=== PATIENT | female | born 1965 | race Caucasian/White ===

== ENCOUNTER 2019-07-26 08:29 | Emergency (ER) | payer BC, SELFPAY ==
[2019-07-26 08:30] VITALS: BP 188/95; PULSE 75; RESP 18; TEMP 36.8; O2SAT 98; BMI 34.0
--- NOTE | 2019-07-26 08:42 | CT_ITS ---
STUDY: CT BRAIN WITHOUT CONTRAST REASON FOR EXAM: Female, 53 years old. Left facial and left arm paresthesias and weakness. RADIATION DOSAGE (If Supplied By Facility): CTDIvol = ( 44.99 ) mGy, DLP = ( 779.24 ) mGycm TECHNIQUE: Transaxial CT imaging of the brain was performed without administration of intravenous contrast material. Individualized dose optimization techniques were used for this CT. COMPARISON: No relevant priors. FINDINGS: Normal soft tissue structures. Normal calvarium. There is a 4.9 cm x 4.5 cm x 3.8 cm inhomogeneous mass in the right frontal parietal lobe with surrounding edema and mass effect. 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 A repeat CT scan with IV contrast or MRI is recommended for further evaluation. Normal brainstem. Normal cerebellum. There is no intracranial hemorrhage. There are no findings of an acute ischemic infarction. Normal visualized paranasal sinuses. CT/Brain/Head without Contrast IMPRESSION: 4.9 cm x 4.5 cm x 3.8 cm inhomogeneous mass in the right frontoparietal lobes as described. A neoplastic process should be ruled out. There is evidence of surrounding edema and mass effect. Correlation with enhanced CT scan or MRI is recommended for further evaluation. Electronically Signed: Sher Gomez, at 9:42 EDT , Service support ,
--- NOTE | 2019-07-26 08:42 | EKG12_ITS ---
Test Reason : NUMB N TINGLING Blood Pressure : / mmHG Vent. Rate : 073 BPM Atrial Rate : 073 BPM P-R Int : 188 ms QRS Dur : 082 ms QT Int : 388 ms P-R-T Axes : 027 047 030 degrees QTc Int : 427 ms Normal sinus rhythm Cannot rule out Anterior infarct , age undetermined Abnormal ECG Confirmed by RASHAD SHORT, CHACORTA ([id number]), newspaper photo editor SHARON GASTON ([id number]) on 07/27/2019 9:23:05 AM Referred By: Confirmed By:CHACORTA SOLORZANO MD
--- NOTE | 2019-07-26 08:50 | ED.DCSUM_ITS ---
- ER Visit Summary Date of Service: 07/26/19 Chief Complaint: Left face arm concerns History of Present Illness: The patient is a 53 F who tells me for the past week she has felt her conjunctiva being swollen in the left eye. Yesterday she noticed that she seemed to be talking on the right side of her mouth and noticed a left facial droop. She states the left side of her face feels different when compared to the right. She states that when she closes her eyes the left eyelid feels weaker. Today she states she was on the keyboard on her computer trying to make a doctor's appointment and her left hand did not seem to be hitting the keystrokes correctly. She describes it as fumbling. She states that has improved and her left arm now feels heavy. She denies current headache. She has not noticed any rashes. No leg symptoms. No chest pain or shortness of breath. Physical Examination: Noted hypertension 188/95 heart rate is 75 respirations are 18 pulse ox 98% on room air temperature 98.3 Gen: Well-nourished well-developed Head: Normocephalic atraumatic Eyes: Perrl EOMI ENT: TMs clear no rhinorrhea moist mucous membranes Neck: Supple no lymphadenopathy no JVD nontender CVS: Regular rate rhythm no murmurs normal S1-S2 Respiratory: No distress clear to auscultation bilaterally chest nontender Abdomen: Soft nontender nondistended normal bowel sounds no masses Back: Nontender Extremity: Nontender no edema Skin: Normal color no rash Neuro: alert orientated ?3 CN II-XII intact normal strength gait cerebellar patient reports decreased sensation to the left face left hand. When patient smiles corners of the mouth rise. She is able to wrinkle her forehead though there seems to be less creases on the left compared to the right. Patient appears to have good dexterity of the left hand being able to rapidly tap each finger to her thumb. Psych: Normal affect normal mood Test Results: EKG showed a normal sinus rhythm at a rate of 73. CBC and CMP are normal. Chest x-ray negative. CT noncontrast of the brain demonstrates a 4.9 x 4.5 x 3.8 right frontal parietal mass with edema and mass-effect. Emergency Department Course and Treatment: Patient received IV Decadron. Patient and his significant other were updated on the above findings. We are currently working to transfer her to facility that can continue the work-up. She has requested [facility]. Impression: 1. 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 It may contain incorrect words, spelling, and punctuation that were not noted in review of the chart prior to signing ED Disposition - Plan for ED Patient: Referrals: [facility] Doctor,Out of [Primary Care Provider] -
--- NOTE | 2019-07-26 09:02 | RAD_ITS ---
STUDY: X-RAY CHEST REASON FOR EXAM: Female, 53 years old. Facial numbness. TECHNIQUE: PA and lateral views of the chest. COMPARISON: None. FINDINGS: EKG electrodes are seen. The lungs are clear and expanded. There is no demonstrated pleural abnormality. Normal size heart. Normal mediastinum and rere. Normal visualized pulmonary arteries. Normal visualized aortic arch and descending thoracic aorta. There are mild degenerative changes of the visualized thoracic spine. Normal visualized ribs, clavicles, and shoulders. There is no demonstrated abnormality of the visualized soft tissue structures of the upper abdomen. RAD/Chest PA and Lateral IMPRESSION: Normal x-ray examination of the chest. Electronically Signed: Sher Gomez, at 9:40 EDT , Service support ,
[2019-07-26 09:08] LABS: Absolute Lymphocyte Count 1.04 X10^3/uL (0.83-4.51); Absolute Neutrophil Count 3.6 X10^3/uL (2.0-7.7); Basophil# 0.03 X10^3/uL; Basophil% 0.6 % (0-1); Eosinophil# 0.09 X10^3/uL; Eosinophils% 1.8 % (0-5); Hematocrit 40.4 % (37-47); Hemoglobin 13.9 g/dL (12.0-15.0); Lymphocyte # 1.04 X10^3/ul (4.0); Lymphocyte % 20.4 % (19-41); Mean Corp Hgb Conc 34.4 g/dL (32-36); Mean Corpuscular Hgb 30.4 pg (27.0-32.0); Mean Corpuscular Volume 88.4 fL (81-99); Mean Platelet Vol. 11.5 fl (6.2-12.0); Monocyte% 5.9 % (0-10); NRBC Flagged by Analyzer 0 % (0-5); Neutrophil # 3.63 X10^3/uL (2.7-7.7); Neutrophil % 71.1 % (47-70); Platelet Count 191 K/mm3 (150-450); RBC Distribution Width SD 38.8 fl (35.1-43.9); Red Blood Count 4.57 M/mm3 (4.2-5.4); White Blood Count 5.1 K/mm3 (4.4-11.0)
[2019-07-26 09:24] LABS: ALB/GLOB Ratio 0.9 RATIO (0.9-2.4); AST(SGOT) 16 U/L (15-37); Alanine Aminotransfer ALT/SGPT 33 U/L (13-56); Albumin, Serum 3.3 g/dL (3.2-5.0); Alkaline Phosphatase 79 U/L (45-117); Anion Gap 8 (5-15); BUN 15 mg/dL (7-18); BUN/Creat Ratio 19.9 RATIO (10-20); Calcium,Total 8.7 mg/dL (8.5-10.1); Chloride 113 mmol/L (98-107); Creatinine, Serum 0.76 mg/dL (0.55-1.02); EST Glomerular Filtration Rate 85 mL/min (>60); Est Glom Filt Rate - Afr Amer 103 mL/min (>60); Estimated Creatinine Clearance 89.46 ml/min; Globulin 3.5 g/dL (2.2-4.2); Glucose 82 mg/dL (74-106); Potassium 3.9 mmol/L (3.5-5.1); Protein, Total 6.8 g/dL (6.4-8.2); Sodium Level 146 mmol/L (136-145)
[2019-07-26] MEDS: dexAMETHasone 10 MG/ML Vial IV (10:17)
--- NOTE | 2019-07-26 10:38 | CASEMGMT ---
Case Management Progress Note: According to patient Insurance [facility] PPO, In Network Hospitals: FATOU Brady, [facility], [place], [facility], [facility], [facility]. Mily Leal RNCM
[2019-07-26 10:44] VITALS: BP 198/107; PULSE 75; RESP 18; O2SAT 99
[2019-07-26 12:37] VITALS: BP 198/107; PULSE 100; RESP 18; O2SAT 100
--- NOTE | 2019-07-26 12:38 | ED.RN ---
TALKED TO [facility] AND THEY STILL DONT HAVE A BED FOR THE PATIENT ALTHOUGH SHE IS HIGHER ON THE PRIORITY LIST.
[2019-07-26 14:00] VITALS: BP 178/98; PULSE 98; RESP 19; O2SAT 98
[2019-07-26] MEDS: hydrALAZINE 20 MG/ML Vial 10 MG IV (14:25)
[2019-07-26 15:04] VITALS: BP 178/98; PULSE 91; RESP 16; O2SAT 98
== END 2019-07-26 15:06 | disposition short-term general hospital (02) ==
PROVIDERS: Emergency Provider Emergency Medicine
DX: D49.6 Neoplasm of unspecified behavior of brain (principal); I10 Essential (primary) hypertension; Z79.899 Other long term (current) drug therapy
CPT/HCPCS: 70450; 71046; 80053; 85025; 93005; 96374; 96375; 99285; A4216

== ENCOUNTER 2019-08-19 02:33 | Emergency (ER) | payer BC, SELFPAY ==
[2019-08-19 02:34] VITALS: BP 187/100; PULSE 90; RESP 16; TEMP 36.4; O2SAT 98; BMI 33.0
--- NOTE | 2019-08-19 02:45 | CT_ITS ---
STUDY: CT BRAIN WITHOUT CONTRAST REASON FOR EXAM: Female, 53 years old. Seizure activity. Known brain mass. RADIATION DOSAGE (If Supplied By Facility): CTDIvol = ( 44.99 ) mGy, DLP = ( 796.11 ) mGycm TECHNIQUE: Transaxial CT imaging of the brain was performed without administration of intravenous contrast material. Individualized dose optimization techniques were used for this CT. COMPARISON: No relevant priors. FINDINGS: There is postoperative change from right frontal craniotomy with frontal lobe tumor resection. Heterogeneous hypoattenuation within the resection bed with mild surrounding vasogenic edema, improved compared to prior imaging. There is a 4 mm midline shift to the left. Normal size ventricles and extra-axial spaces for the patient's age. There is mild underlying bilateral periventricular and subcortical white matter hypoattenuation which is symmetric in distribution. Normal basal ganglia and thalami. Normal brainstem. Normal cerebellum. There is no intracranial hemorrhage. There are no findings of an acute ischemic infarction. Normal visualized paranasal sinuses. CT/Brain/Head without Contrast IMPRESSION: 1. Postoperative change from right frontal craniotomy and right frontal lobe mass resection with mild residual heterogeneous edema throughout the resection bed and 4 mm midline shift to the left. 2. Mild underlying bilateral periventricular and subcortical white matter chronic small vessel disease with age appropriate cerebral atrophy. Electronically Signed: Oli Robert MD at 3:59 EDT Tel , Service support ,
--- NOTE | 2019-08-19 02:47 | ED.DCSUM_ITS ---
History of Present Illness Chief Complaint: Seizure Informant: Patient, Family Onset: Today Context: Sudden Onset Narrative: Patient is a 53-year-old female with recent diagnosis of stage IV glioblastoma multiform who had her first session of radiation therapy this morning. Patient is presenting with seizure activity. Prior to arrival patient had a 3 to 4- minute episode where she had uncontrolled shaking of her left arm. It stopped spontaneously. Patient was able to recall the entire event and did not have an associated postictal state. Nothing like this has happened her before. Patient was scheduled to start chemotherapy in the morning. Patient receives her care through [facility]. Her radiation oncologist is Dr. Rachel. Patient was recently tapered off of Decadron however she started to have increasing left-sided weakness. This was initially what led to her diagnosis of GBM. Patient received an 8 mg burst of Decadron 2 days ago. Patient is also been tapered off of Keppra over the past week. Besides feeling more weak on her left side patient denies any other complaints at this time. Past Medical History - Allergies and Home Meds Allergies/Adverse Reactions: Allergies No Known Allergies Allergy (Verified 08/19/19 02:33) Primary Care Physician: Jovan Black,Out of [NON-STAFF] - Past Medical History: - - GBM stage IV Surgical History: - - brain tumor surgery Lives: Spouse/ Significant Other Smoking Status: Former smoker Review of Systems All systems negative except as indicated Neurological: Reports: Weakness - left sided , - - seizure activity Physical Exam Vital Signs/Narrative: Vital Signs Temp Pulse Resp BP Pulse Ox 08/19/19 02:34 97.6 F L 90 16 187/100 H 98 General: Well nourished, Well developed, No Acute Distress Head: Normocephalic, Atraumatic Eyes: Perrl, EOMI, - - No nystagmus ENT: Moist mucous membranes, No rhinorrhea Neck: Supple, Nontender Cardiovascular: Regular rate, Regular rhythm, No murmurs Respiratory: No distress, CTA bilaterally, Chest nontender Abdomen: Soft, Nontender, Nondistended, Normal bowel sounds Back: Nontender, Normal Inspection Extremities: Nontender, No edema Skin: Normal color, No rash Neurological: Alert, Oriented x3, Parasthesia - Left upper extremity, Weakness - Left arm drift, Left side facial droop Psychological: Normal affect, Normal Mood Diagnostic/Tx/Re-eval Diagnostic Data Brain CT 08/19/19 02:45 IMPRESSION: 1. Postoperative change from right frontal craniotomy and right frontal lobe mass resection with mild residual heterogeneous edema throughout the resection bed and 4 mm midline shift to the left. 2. Mild underlying bilateral periventricular and subcortical white matter chronic small vessel disease with age appropriate cerebral atrophy. Electronically Signed: Oli Robert MD at 3:59 EDT Tel , Service support , Clinical Impression(s) from Imaging Studies Brain CT 08/19/19 02:45 IMPRESSION: 1. Postoperative change from right frontal craniotomy and right frontal lobe mass resection with mild residual heterogeneous edema throughout the resection bed and 4 mm midline shift to the left. 2. Mild underlying bilateral periventricular and subcortical white matter chronic small vessel disease with age appropriate cerebral atrophy. Electronically Signed: Oli Robert MD at 3:59 EDT Tel , Service support , Laboratory Data 08/19/19 08/19/19 08/19/19 02:45 02:45 02:55 WBC 8.5 RBC 5.11 Hgb 15.7 H Hct 45.6 MCV 89.2 MCH 30.7 MCHC 34.4 RDW Std Deviation 40.5 RDW Coeff of Jerrod 12.4 Plt Count 204 MPV 11.1 Immature Gran % (Auto) 0.200 Neut % (Auto) 93.0 H Lymph % (Auto) 5.3 L Wilkin % (Auto) 1.4 Eos % (Auto) 0.0 Baso % (Auto) 0.1 Absolute Neuts (auto) 7.9 H Absolute Lymphs (auto) 0.45 L Nucleated RBC % 0 Differential Comment SCANNED Sodium 143 Potassium 4.2 Chloride 111 H Carbon Dioxide 20.0 L Anion Gap 12 BUN 18 Creatinine 0.87 Estim Creat Clear Calc 78.15 Est GFR (MDRD) Af Amer 87 Est GFR (MDRD) Non-Af 72 BUN/Creatinine Ratio 20.6 H Glucose 127 H Calcium 9.0 Urine Color Yellow Urine Clarity Sl. Cloudy Urine pH 6.0 Ur Specific [place] 1.020 Urine Protein 15 H Urine Glucose (UA) Normal Urine Ketones 50 H Urine Occult Blood 10 H Urine Nitrite Negative Urine Bilirubin Negative Urine Urobilinogen Normal Ur Leukocyte Esterase 25 H Urine RBC 0 SEEN Urine WBC 0-5 SEEN Ur Squamous Epith Cells 0-5 SEEN Urine Bacteria RARE Urine Mucus 0 SEEN Urine Opiates Screen Urine Methadone Screen Ur Barbiturates Screen Ur Phencyclidine Scrn Ur Amphetamines Screen U Methamphetamin-MDMA U Benzodiazepines Scrn Urine Cocaine Screen U Cannabinoids Screen Ur Drug Screen Comment 08/19/19 02:55 WBC RBC Hgb Hct MCV MCH MCHC RDW Std Deviation RDW Coeff of Jerrod Plt Count MPV Immature Gran % (Auto) Neut % (Auto) Lymph % (Auto) Wilkin % (Auto) Eos % (Auto) Baso % (Auto) Absolute Neuts (auto) Absolute Lymphs (auto) Nucleated RBC % Differential Comment Sodium Potassium Chloride Carbon Dioxide Anion Gap BUN Creatinine Estim Creat Clear Calc Est GFR (MDRD) Af Amer Est GFR (MDRD) Non-Af BUN/Creatinine Ratio Glucose Calcium Urine Color Urine Clarity Urine pH Ur Specific [place] Urine Protein Urine Glucose (UA) Urine Ketones Urine Occult Blood Urine Nitrite Urine Bilirubin Urine Urobilinogen Ur Leukocyte Esterase Urine RBC Urine WBC Ur Squamous Epith Cells Urine Bacteria Urine Mucus Urine Opiates Screen NEGATIVE Urine Methadone Screen NEGATIVE Ur Barbiturates Screen NEGATIVE Ur Phencyclidine Scrn NEGATIVE Ur Amphetamines Screen NEGATIVE U Methamphetamin-MDMA NEGATIVE U Benzodiazepines Scrn NEGATIVE Urine Cocaine Screen NEGATIVE U Cannabinoids Screen NEGATIVE Ur Drug Screen Comment - Medical Decision Making Patient is evaluated for seizure-like activity. From the history of the seizure appears to be a partial seizure. Patient has a known glioblastoma which is likely cause of her seizure. Repeat head CT does not show any acute intracranial process. Patient does not have any signs of stroke or intracranial bleed. While patient does have some neuro deficits, patient and state that this is been present and associated with her tumor. Patient does not have any significant electrolyte abnormalities that might explain her seizure activity. Did discuss the case with radiation oncology on-call, Dr. Hart at [facility]. He felt that starting her Keppra would be appropriate but recommended discussing with neurology first. From his standpoint he did not think the patient needed to be admitted. I spoke with Dr. Zimmer, neurology on-call for [facility], about the case. He agreed with restarting the patient's Keppra but did not think she needed to be loaded with IV Keppra. He felt that if she was clinically stable in the emergency room that she could follow-up outpatient with her team tomorrow at [facility]. I agree with this. I feel the patient is stable for outpatient follow-up. She does not have any acute neurologic changes and she has a known cause of her seizure, the tumor. Patient was previously on 1000 mg of Keppra twice daily. She will be restarted on this. She is given first dose in the emergency room. She is given a prescription for a 2-week course of this. Patient is counseled on signs and symptoms requiring return to the emergency room. Patient verbalizes agreement and understand this plan. Patient discharged home in stable and improved condition. ED Disposition - Plan for ED Patient: Disposition: Home or Assisted Living Diagnosis: Partial seizures Instructions: Partial Seizures: Know What to Do Prescriptions: levETIRAcetam tablet [Keppra tablet] 1,000 mg PO BID #28 tab Prescription Printed Referrals: [facility] Doctor,Out of [NON-STAFF] - Additional Instructions: Please call your medical oncologist tomorrow for further instructions for follow-up. Let them know that you had a likely partial seizure tonight. You were restarted on Keppra 1000 mg. Return to the emergency room if you develop any new or worsening symptoms.
[2019-08-19 02:54] LABS: Absolute Lymphocyte Count 0.45 X10^3/uL (0.83-4.51); Absolute Neutrophil Count 7.9 X10^3/uL (2.0-7.7); Basophil# 0.01 X10^3/uL; Basophil% 0.1 % (0-1); Hematocrit 45.6 % (37-47); Hemoglobin 15.7 g/dL (12.0-15.0); Lymphocyte # 0.45 X10^3/ul (4.0); Lymphocyte % 5.3 % (19-41); Mean Corp Hgb Conc 34.4 g/dL (32-36); Mean Corpuscular Hgb 30.7 pg (27.0-32.0); Mean Corpuscular Volume 89.2 fL (81-99); Mean Platelet Vol. 11.1 fl (6.2-12.0); Monocyte# 0.12 X10^3/uL; Monocyte% 1.4 % (0-10); NRBC Flagged by Analyzer 0 % (0-5); Neutrophil # 7.88 X10^3/uL (2.7-7.7); POSITIVE DIFFERENTIAL YES; Platelet Count 204 K/mm3 (150-450); RBC Distribution Width CV 12.4 % (11.6-14.6); RBC Distribution Width SD 40.5 fl (35.1-43.9); Red Blood Count 5.11 M/mm3 (4.2-5.4); White Blood Count 8.5 K/mm3 (4.4-11.0)
[2019-08-19 02:59] LABS: Mucous, Urine 0 SEEN /hpf (<or=2+); Red Blood Cells-Urine 0 SEEN /hpf (0-5)
[2019-08-19] MEDS: 0.9% Normal Saline 1,000 ML 1000 ML IV (03:02)
[2019-08-19 03:06] LABS: Color, Urine Yellow (Yellow); Glucose, Dipstick Normal (Normal); Ketone-Dipstick 50 mg/dl (Negative); Leukocyte Esterase-Dipstick 25 /ul (Negative); Nitrite-Dipstick Negative (Negative); Occult Blood-Urine 10 /ul (Negative); Protein-Dipstick 15 mg/dl (Negative); Urine Bilirubin Dipstick Negative (Negative); Urine Clarity Sl. Cloudy (Clear); Urine Urobilinogen Normal (Normal)
[2019-08-19 03:10] LABS: Differential Indicated SCAN CRITERIA MET
[2019-08-19 03:11] LABS: Anion Gap 12 (5-15); BUN 18 mg/dL (7-18); BUN/Creat Ratio 20.6 RATIO (10-20); Chloride 111 mmol/L (98-107); Creatinine, Serum 0.87 mg/dL (0.55-1.02); EST Glomerular Filtration Rate 72 mL/min (>60); Est Glom Filt Rate - Afr Amer 87 mL/min (>60); Estimated Creatinine Clearance 78.15 ml/min; Glucose 127 mg/dL (74-106); Potassium 4.2 mmol/L (3.5-5.1); Sodium Level 143 mmol/L (136-145)
[2019-08-19 03:18] LABS: Differential Comment SCANNED
[2019-08-19 03:28] LABS: Bacteria RARE /hpf (None Seen); Squamous Epithelial Cells - UA 0-5 SEEN /hpf (5-10); White Blood Cells 0-5 SEEN /hpf (0-5)
[2019-08-19 03:35] LABS: Amphetamine Urine VISTA NEGATIVE (<1000 ng/mL); Barbiturate Urine VISTA NEGATIVE (< 200 ng/mL); Benzodiazepine Urine VISTA NEGATIVE (< 200 ng/mL); Cocaine Urine VISTA NEGATIVE (< 300 ng/mL); Ecstacy Urine VISTA NEGATIVE (< 500 ng/mL); Methadone Urine VISTA NEGATIVE (< 300 ng/mL); PCP Urine VISTA NEGATIVE (< 25 ng/mL); THC Urine VISTA NEGATIVE (< 50 ng/mL); Vista UDS pH Range 6
[2019-08-19] MEDS: levETIRAcetam 1,000 MG Tablet 1000 MG PO (04:22)
[2019-08-19 04:36] VITALS: BP 170/92; PULSE 70; PULSE 73; RESP 13; RESP 18; O2SAT 98
== END 2019-08-19 04:45 | disposition home or self-care (01) ==
PROVIDERS: Emergency Provider Emergency Medicine
DX: R56.9 Unspecified convulsions (principal); C71.9 Malignant neoplasm of brain, unspecified; Z79.899 Other long term (current) drug therapy; Z87.891 Personal history of nicotine dependence
CPT/HCPCS: 70450; 80048; 80307; 81001; 85025; 96360; 96361; 99285; J7030

== ENCOUNTER 2019-10-22 17:32 | Emergency (ER) | payer BC, SELFPAY ==
[2019-10-22 17:33] VITALS: BP 152/78; PULSE 68; RESP 17; TEMP 36.9; O2SAT 99; BMI 33.7
[2019-10-22 17:40] VITALS: BMI 33.7
--- NOTE | 2019-10-22 18:03 | CT_ITS ---
STUDY: CT BRAIN WITHOUT CONTRAST REASON FOR EXAM: Female, 53 years old. Left-sided weakness. History of glioblastoma multiform status post radiation and surgery. RADIATION DOSAGE (If Supplied By Facility): CTDIvol = ( 60.81 ) mGy, DLP = ( 1067.08 ) mGycm TECHNIQUE: Transaxial CT imaging of the brain was performed without administration of intravenous contrast material. Individualized dose optimization techniques were used for this CT. COMPARISON: Prior exam of August 19, 2019 FINDINGS: Normal soft tissue structures. Status post right superior frontal craniotomy. Continued heterogeneous density throughout the operative bed in the right frontal lobe appearing modestly reduced in size since August 19, 2019 with only a slight right to left shift. Continued sulcal effacement on the right. The left hemisphere is unremarkable and unchanged from the prior exam. Negative for hemorrhage, hematoma or a secondary mass density. Normal brainstem. Normal cerebellum. Normal visualized paranasal sinuses. CT/Brain/Head without Contrast IMPRESSION: Continued heterogeneous density throughout the operative bed in the right frontal lobe status post right superior frontal craniotomy. Overall, the abnormal area has decreased modestly since the prior exam of August 19, 2019. There continues to be effacement of the related sulci with minimal right to left shift. No additional findings or changes. Negative for new hemorrhage, hematoma or extra-axial fluid collection. Negative for secondary mass lesion. Electronically Signed: Rayna Packer MD at 18:53 EST , Service support ,
--- NOTE | 2019-10-22 18:05 | ED.VISSUMM ---
- ER Visit Summary Date of Service: 10/22/19 Chief Complaint: Possible seizure History of Present Illness: The patient is a 53 F with a history of glioblastoma multiform. Treated at [facility] by Annette Harris (sp?), and Bernardino (sp?). She had neurosurgery on July 28 but the tumor was not amenable to surgery. She underwent 6 weeks of radiation and chemotherapy which ended in mid September. In early August, she had a partial seizure. She was treated with Keppra and also Decadron. She had some eye twitching later in August on the which resolved with Ativan. Her Decadron was increased. Today she was using the restroom. Her left eye was twitching and her left face was numb. She took half an Ativan. The twitching stopped but she continued to have left face and left hand numbness. She felt like she was having a seizure in her left hand as it was quinn. She never lost consciousness. Denies any other associated symptoms. Physical Examination: Afebrile and vital signs unremarkable. Patient alert and oriented. Cranial nerves grossly intact. Normal strength and sensation. NIH stroke scale is 0. Heart regular. Lungs clear. Abdomen soft. Skin appears normal. Test Results: EKG, labs, CT brain pending. Emergency Department Course and Treatment: Patient was placed on a monitor. Seizure precautions initiated. We will check imaging, EKG, and labs. Will discuss with her specialist. CT brain showed a right frontal lobe density which is moderately decreased with minimal right to left shift. Patient is pancytopenic. I reviewed her numbers, and they are stable for her. Otherwise her labs are fine. No further seizure activity. I spoke with the patient's neuro oncologist fellow. They advise no change in her medications. Seizure precautions, and follow-up as scheduled in 4 days. Return for any new or worsening issues. Treatment Plan: As above Disposition: Discharge Impression: 1. Seizure 2. Glioblastoma multiforme This note was generated with [employer] software. It may contain incorrect words, spelling, and punctuation that were not noted in review of the chart prior to signing ED Disposition - Plan for ED Patient: Referrals: MARLENE JANE [Other]
[2019-10-22 18:23] LABS: Basophil# 0.01 X10^3/uL; Basophil% 0.6 % (0-1); Eosinophil# 0.01 X10^3/uL; Eosinophils% 0.6 % (0-5); Hematocrit 28.2 % (37-47); Mean Corp Hgb Conc 35.5 g/dL (32-36); Mean Corpuscular Hgb 33.9 pg (27.0-32.0); Mean Corpuscular Volume 95.6 fL (81-99); Mean Platelet Vol. 10.7 fl (6.2-12.0); Monocyte# 0.23 X10^3/uL; Monocyte% 13.8 % (0-10); Neutrophil # 1.01 X10^3/uL (2.7-7.7); Neutrophil % 60.4 % (47-70); POSITIVE COUNT YES; POSITIVE DIFFERENTIAL YES; RBC Distribution Width CV 17.5 % (11.6-14.6); RBC Distribution Width SD 48.6 fl (35.1-43.9); Red Blood Count 2.95 M/mm3 (4.2-5.4); White Blood Count 1.7 K/mm3 (4.4-11.0)
[2019-10-22 18:25] LABS: International Normalized Ratio 0.9; Partial Thromboplast Time 27.8 Seconds (24.1-36.2); Prothrombin Time (Protime)PT. 12.3 SECONDS (11.7-14.9)
[2019-10-22 18:26] VITALS: O2SAT 99
[2019-10-22 18:32] LABS: Anion Gap 5 (5-15); BUN 24 mg/dL (7-18); BUN/Creat Ratio 33.3 RATIO (10-20); Calcium,Total 8.7 mg/dL (8.5-10.1); Chloride 111 mmol/L (98-107); Creatinine, Serum 0.72 mg/dL (0.55-1.02); EST Glomerular Filtration Rate 90 mL/min (>60); Est Glom Filt Rate - Afr Amer 109 mL/min (>60); Estimated Creatinine Clearance 94.43 ml/min; Glucose 93 mg/dL (74-106); Potassium 4.4 mmol/L (3.5-5.1); Sodium Level 142 mmol/L (136-145)
[2019-10-22 18:36] LABS: NRBC Flagged by Analyzer 1.8 % (0-5)
[2019-10-22 18:37] LABS: Differential Indicated SCAN CRITERIA MET; Platelet Count 37 K/mm3 (150-450)
[2019-10-22 18:58] LABS: Differential Comment SCANNED; Platelet Estimate MKD DEC (ADEQ)
[2019-10-22 19:26] VITALS: BP 129/92; PULSE 62; RESP 17; O2SAT 99
--- NOTE | 2019-10-22 20:00 | ED.DEP ---
ED Disposition - Plan for ED Patient: Instructions: SEIZURE, Recurrent [Adult] Additional Instructions: follow up with your neuro oncologist
[2019-10-22 20:08] VITALS: BP 125/83; PULSE 71; RESP 18; O2SAT 96
[2019-10-25 15:40] LABS: Pathologist Review Reviewed
== END 2019-10-22 20:09 | disposition home or self-care (01) ==
LOC: ED 17:52
PROVIDERS: Emergency Provider Emergency Medicine
DX: G40.909 Epilepsy, unspecified, not intractable, without status epilepticus (principal); C71.9 Malignant neoplasm of brain, unspecified; I10 Essential (primary) hypertension; Z79.899 Other long term (current) drug therapy; Z87.891 Personal history of nicotine dependence
CPT/HCPCS: 70450; 80048; 84484; 85025; 85610; 85730; 99285; A4216

== ENCOUNTER 2022-07-12 16:59 | Emergency (ER) | payer BC, SELFPAY ==
[2022-07-12 17:01] VITALS: BP 117/98; PULSE 85; RESP 16; TEMP 37; O2SAT 98; BMI 30.5
--- NOTE | 2022-07-12 17:10 | EDS_ITS ---
HPI History of Present Illness Chief Complaint: Seizure Detail of Chief Complaint: Focal seizure that started at 1630 Informant: patient and spouse/S.O. Onset/Context/Timing Onset: Hours Context: Sudden Onset Timing: Continuous Quality: Rhythmic movement of the left upper extremity and left side of face Location: Previously documented Current Severity: Mild Maximum Severity: Moderate Worsened by: History of glioblastoma Relieved by: Nothing Associated Symptoms Associated Symptoms: No new weakness or altered sensation Narrative Narrative: Patient is a 56-year-old woman with history of hypothyroidism, adrenal insufficiency and seizure disorder. Seizure disorder is due to the glioblastoma. states there is a new parietal lesion. She has weakness left upper extremity which is old. She presently denies headache. She denies double vision, blurred vision loss of vision. She has trouble with her speech. She denies cardiac respiratory symptoms. She denies GI symptoms. Prior similar symptoms: Yes Recent Illness/Hospitalization: No [facility] Medical History (Updated 07/12/22 @ 19:[address] Jeff Ace MD) Adrenal insufficiency Glioblastoma HTN (hypertension) Hypothyroid Metastasis Medical History no medical history no medical history (Documented in the HPI narrative) Home Medications amlodipine 5 mg tablet 10 mg PO DAILY 07/26/19 [History Last Taken Unknown] lisinopril 20 mg tablet 20 mg PO QHS 07/26/19 [History Last Taken Unknown] dexamethasone 4 mg tablet 2 mg PO DAILY 08/19/19 [History Last Taken Unknown] docusate sodium 100 mg capsule 1 tab PO DAILY 08/19/19 [History Last Taken Unknown] levetiracetam 500 mg tablet 1,500 mg PO BID 10/22/19 [History Last Taken Unknown] Allergy/AdvReac Type Severity Reaction Status Date / Time Gadolinium-MRI Contrast AdvReac PT UNSURE Verified 07/12/22 17:00 Medium OF REACTION [MRI] Social History (Updated 07/12/22 @ 17:[address] Jeff Ace MD) household members: spouse Smoking Status: Former smoker substance use type: does not use ROS ROS ED Constitutional Constitutional ED: Denies chills, fever(s), subjective, sweats or weight loss Eyes Eyes: Denies blurry vision, change in vision or diplopia ENT ENT ED: Denies ear pain, rhinorrhea or sore throat Cardiovascular Cardiovascular: Denies chest pain, palpitations or racing heartbeat Respiratory/Chest Respiratory/Chest: Denies cough, dyspnea or dyspnea on exertion Gastrointestinal Gastrointestinal: Denies abdominal pain, diarrhea, nausea or vomiting Genitourinary Genitourinary ED: Denies dysuria, hematuria or urinary frequency Musculoskeletal Musculoskeletal: Denies arthralgias, back pain, myalgias or neck pain Integumentary Denies Abrasions or rash Neurologic Neurologic: Reports paresthesias; Denies headache(s) Psychiatric Psychiatric: Denies anxiety Endocrine Endocrinology: Denies cold intolerance or heat intolerance Hematologic/Lymphatic Hematologic/Lymphatic: Reports systems reviewed and no addt'l complaints, except as documented EXAM Physical Exam Const Vital Signs: 07/12/22 17:01 07/12/22 17:26 Temperature 98.6 F Temperature Source Temporal Pulse Rate 85 72 Respiratory Rate 16 14 Blood Pressure 117/98 H Blood Pressure Mean 104 Pulse Ox 98 97 Oxygen Delivery Method Room Air Room Air Positive well nourished, well developed and obese General Appearance ED: well developed and NAD; Negative for cyanotic, diaphoretic or pallor Nutritional Appearance: obese HEENT Reports moist mucous membranes HEENT Narrative: Patient has slight facial droop on the left. There is rhythmic twitching of the left side of the face. Ears normal. Nares patent. No deviation tongue with protrusion. Uvula midline. Eyes PERRL and EOMs intact bilaterally Eyes Narrative: Patient has nystagmus noted. Fast component to the right. General Eye ED: Negative for pale conjunctiva or scleral icterus Neck no lymphadenopathy, supple and no JVD Neck Narrative: Trachea is midline. There is no cervical lymphadenopathy. There is no carotid bruits. Chest Wall palpation of chest normal Resp normal respiratory effort and clear to auscultation bilaterally Cardio regular rate, regular rhythm, S1 normal heart sound, S2 normal heart sound and no murmurs GI normal to inspection, nondistended, normoactive bowel sounds, non-tender and non-distended; Negative for hepatosplenomegaly Palpation: soft Back/Spine no CVA tenderness Extremity Negative for normal to inspection Extremity Narrative: Contracture left upper extremity due to neurologic deficit from glioblastoma. Patient has rhythmic movement of the left upper extremity consistent with seizure. Neuro oriented x3, No CN's II-XII intact bilaterally and no sensory deficits noted Sensorium / Orientation: alert Motor Exam: Negative for strength 5/5 throughout Psych mental status grossly normal Skin no rashes or lesions noted, no wounds and No skin turgor normal General Skin Exam: Negative for jaundice or pallor MDM MDM MDM Narrative Medical decision making narrative: Patient is presently on Decadron 4 mg twice daily. Because she is still seizing in spite of Versed administered by the squad IM because IV access was not obtainable she will receive 0.05 mg/kg of Ativan. We will give a dose of Keppra since she is on Keppra for her seizures. She will require transfer since she is experiencing focal status epilepticus. CT of the head was ordered. Appropriate blood work was ordered. Lab Data Labs: Laboratory Results - last 24 hr 07/12/22 07/12/22 17:20 17:20 WBC 6.4 RBC 4.07 L Hgb 15.0 Hct 42.7 MCV 104.9 H MCH 36.9 H MCHC 35.1 RDW Std Deviation 49.9 H RDW Coeff of Jerrod 13.0 Plt Count 84 L MPV 10.8 Immature Gran % (Auto) 0.600 Neut % (Auto) 86.2 H Lymph % (Auto) 7.7 L Lyman % (Auto) 5.5 Eos % (Auto) 0.0 Baso % (Auto) 0.0 Absolute Neuts (auto) 5.5 Absolute Lymphs (auto) 0.49 L Nucleated RBC % 0 Differential Comment SCANNED Anisocytosis 1+ Sodium 141 Potassium 4.3 Chloride 109 H Carbon Dioxide 25.0 Anion Gap 7 BUN 29 H Creatinine 0.75 Estim Creat Clear Calc 87.53 Est GFR (MDRD) Af Amer 103 Est GFR (MDRD) Non-Af 85 BUN/Creatinine Ratio 38.7 H Glucose 105 Calcium 8.4 L Total Bilirubin 0.40 AST 13 L ALT 52 Alkaline Phosphatase 54 Total Protein 5.9 L Albumin 3.0 L Globulin 2.9 Albumin/Globulin Ratio 1.0 Radiography Diagnostic Testing: Clinical Impression(s) from Imaging Studies Brain CT 07/12/22 17:48 IMPRESSION: Craniotomy near the vertex of the right with subjacent edema in the surgical bed. No acute change. Electronically Signed: Stephen Pastor MD at 18:33 EDT , Chest X-Ray 07/12/22 17:50 IMPRESSION: Normal x-ray examination of the chest. Electronically Signed: Goldie Germain MD at 18:18 EDT , Critical Care Time Critical Care Time: Yes Critical care time (excluding procedures): 30-74 minutes (32), Including time spent: (History, physical, documentation, titration of the results), Discussing w/Patient &/or Family/Athletics Teacher, Discussing w/Consultants, Arranging Admission or Transfer, Performing Direct Patient Care at Bedside and - (Spoke with Dr. Galarza who accepted patient to be a direct admit to the neuro intensive care unit at [facility]) Discharge Plan Triage Chief Complaint: Seizure ED Provider: Jeff Ace Dx/Rx/DC Orders Clinical Impression: Localization-related (focal) (partial) symptomatic epilepsy and epileptic syndromes with complex partial seizures, intractable, with status epilepticus, Glioblastoma multiforme, Vasogenic cerebral edema Prescriptions: No Action lisinopril 20 MG tablet 20 mg PO QHS amlodipine 5 MG tablet 10 mg PO DAILY dexamethasone 4 MG tablet 2 mg PO DAILY docusate sodium 100 MG capsule 1 tab PO DAILY levetiracetam 500 MG tablet 1,500 mg PO BID Primary Care Provider: MARLENE JANE Referrals: MARLENE JANE [Other] Disposition Disposition: Acute Care Hospital
[2022-07-12] MEDS: LORazepam 2 MG/ML Syringe 5 MG IV (17:23)
[2022-07-12 17:26] VITALS: PULSE 72; RESP 14; O2SAT 97
[2022-07-12 17:26] LABS: Absolute Lymphocyte Count 0.49 X10^3/uL (0.83-4.51); Absolute Neutrophil Count 5.5 X10^3/uL (2.0-7.7); Hematocrit 42.7 % (37-47); Lymphocyte # 0.49 X10^3/ul (0.83-4.51); Lymphocyte % 7.7 % (19-41); Mean Corp Hgb Conc 35.1 g/dL (32-36); Mean Corpuscular Hgb 36.9 pg (27.0-32.0); Mean Corpuscular Volume 104.9 fL (81-99); Mean Platelet Vol. 10.8 fl (6.2-12.0); Monocyte# 0.35 X10^3/uL; Monocyte% 5.5 % (0-10); NRBC Flagged by Analyzer 0 % (0-5); Neutrophil # 5.49 X10^3/uL (2.7-7.7); Neutrophil % 86.2 % (47-70); POSITIVE COUNT YES; POSITIVE DIFFERENTIAL YES; Platelet Count 84 K/mm3 (150-450); RBC Distribution Width SD 49.9 fl (35.1-43.9); Red Blood Count 4.07 M/mm3 (4.2-5.4); White Blood Count 6.4 K/mm3 (4.4-11.0)
[2022-07-12 17:44] LABS: AST(SGOT) 13 U/L (15-37); Alanine Aminotransfer ALT/SGPT 52 U/L (13-56); Alkaline Phosphatase 54 U/L (45-117); Anion Gap 7 (5-15); BUN 29 mg/dL (7-18); BUN/Creat Ratio 38.7 RATIO (10-20); Calcium,Total 8.4 mg/dL (8.5-10.1); Chloride 109 mmol/L (98-107); Creatinine, Serum 0.75 mg/dL (0.55-1.02); EST Glomerular Filtration Rate 85 mL/min (>60); Est Glom Filt Rate - Afr Amer 103 mL/min (>60); Estimated Creatinine Clearance 87.53 ml/min; Globulin 2.9 g/dL (2.2-4.2); Glucose 105 mg/dL (74-106); Potassium 4.3 mmol/L (3.5-5.1); Protein, Total 5.9 g/dL (6.4-8.2); Sodium Level 141 mmol/L (136-145)
[2022-07-12 17:46] LABS: Differential Indicated SCAN CRITERIA MET
--- NOTE | 2022-07-12 17:48 | CT_ITS ---
STUDY: CT BRAIN WITHOUT CONTRAST REASON FOR EXAM: Female, 56 years old. Status epilepticus history of glioblastoma RADIATION DOSAGE (If Supplied By Facility): CTDIvol = ( 44.99 ) mGy, DLP = ( 2070.28 ) mGycm TECHNIQUE: Transaxial CT imaging of the brain was performed without administration of intravenous contrast material. Individualized dose optimization techniques were used for this CT. COMPARISON: CT brain 10/22/2019 FINDINGS: Normal soft tissue structures. Craniotomy near the vertex on the right. Subjacent edema and surgical bed unchanged. There is moderate cerebral atrophy with widening of the extra-axial spaces and ventricular dilatation. There are areas of decreased attenuation within the white matter tracts of the supratentorial brain, consistent with microvascular disease changes. Normal basal ganglia and thalami. Normal brainstem. Normal cerebellum. There is no intracranial hemorrhage. There are no findings of an acute ischemic infarction. Normal visualized paranasal sinuses. CT/Brain/Head without Contrast IMPRESSION: Craniotomy near the vertex of the right with subjacent edema in the surgical bed. No acute change. Electronically Signed: Stephen Pastor MD at 18:33 EDT ,
--- NOTE | 2022-07-12 17:50 | RAD_ITS ---
STUDY: X-RAY CHEST REASON FOR EXAM: Female, 56 years old. Dyspnea TECHNIQUE: Single frontal view of the chest. COMPARISON: 07/26/2019 FINDINGS: The lungs are clear and expanded. There is no demonstrated pleural abnormality. Normal size heart. Normal mediastinum and rere. Normal visualized pulmonary arteries. Normal visualized aortic arch and descending thoracic aorta. Normal visualized thoracic spine. Normal visualized ribs, clavicles, and shoulders. There is no demonstrated abnormality of the visualized soft tissue structures of the upper abdomen. RAD/Chest 1 View (Portable) IMPRESSION: Normal x-ray examination of the chest. Electronically Signed: Goldie Germain MD at 18:18 EDT ,
[2022-07-12 18:19] LABS: Anisocytosis 1+
[2022-07-12 18:20] LABS: Differential Comment SCANNED
[2022-07-12 19:49] VITALS: BP 177/100; PULSE 66; RESP 16; O2SAT 93
[2022-07-12] MEDS: LORazepam 2 MG/ML Syringe 4 MG IV (20:29)
[2022-07-12] MEDS: 0.9% Normal Saline 1,000 ML 150 ML IV (20:32)
[2022-07-12 20:37] VITALS: BP 176/101; PULSE 62; RESP 17; O2SAT 96
[2022-07-12] MEDS: levETIRAcetam 750 MG Tablet 1500 MG PO (20:59)
[2022-07-12] MEDS: Lacosamide 50 MG Tablet 100 MG PO (21:00)
[2022-07-12] MEDS: lamoTRIgine 150 MG Tablet PO (21:00)
[2022-07-12] MEDS: dexAMETHasone 4 MG Tablet PO (21:03)
[2022-07-12 22:24] VITALS: PULSE 71; RESP 16; O2SAT 94
[2022-07-12 23:20] VITALS: BP 174/97; PULSE 74; RESP 16
== END 2022-07-12 23:42 | disposition short-term general hospital (02) ==
PROVIDERS: Emergency Provider Emergency Medicine; Visit Provider Emergency Medicine
DX: G40.211 Localization-related (focal) (partial) symptomatic epilepsy and epileptic syndromes with complex partial seizures, intractable, with status epilepticus (principal); C71.0 Malignant neoplasm of cerebrum, except lobes and ventricles; G93.6 Cerebral edema; I10 Essential (primary) hypertension; E03.9 Hypothyroidism, unspecified; E66.9 Obesity, unspecified; Z87.891 Personal history of nicotine dependence; Z79.899 Other long term (current) drug therapy
CPT/HCPCS: 70450; 71045; 80053; 85025; 87811; 96374; 96376; 99285; J7030; J7050; A4216